=== PATIENT | male | born 1975 | race Caucasian/White ===

== ENCOUNTER → 2025-03-25 | Outpatient (CLI) | payer OTHER | LOC: M RAD 17:02 | PROVIDERS: ATTEND Physician Assistant | DX: M75.51 Bursitis of right shoulder (principal) ==

== ENCOUNTER 2025-07-27 07:51 | Day surgery (SDC) | payer OTHER ==
[~2025-07-27] VITALS: Ht 172.7 cm; Wt 87.4 kg
[2025-07-27] MEDS: LR 1,000 ML IV SCH (08:15)
[2025-07-27] MEDS ORDERED: LIDOCAINE 2% 100 MG/5 ML SDV (FOR ANES.) As Ordered ONE (08:28)
[2025-07-27] MEDS ORDERED: dexmedeTOMIDine (4 MCG/ML) 200 MCG/50 ML BTL As Ordered ONE (08:28)
[2025-07-27] MEDS ORDERED: SUGAMMADEX SODIUM 500 MG/5 ML VIAL As Ordered ONE (08:28)
[2025-07-27] MEDS ORDERED: ONDANSETRON 4MG/2ML VIAL As Ordered ONE (08:28)
[2025-07-27] MEDS ORDERED: MIDAZOLAM INJ 2 MG/2 ML VIAL As Ordered ONE (08:28)
[2025-07-27] MEDS ORDERED: dexAMETHasone 4 MG/ML 1 ML VIAL As Ordered ONE (08:28)
[2025-07-27] MEDS ORDERED: ROCURONIUM BROMIDE 50MG/5ML VIAL As Ordered ONE (08:29)
[2025-07-27] MEDS ORDERED: ACETAMINOPHEN 1000MG/100ML IV BAG As Ordered ONE (08:29)
[2025-07-27] MEDS: MIDAZOLAM INJ 2 MG/2 ML VIAL IV PRN (10:02)
[2025-07-27] MEDS: dexAMETHasone 10 MG/1 ML VIAL PRES.FREE PN ONE (10:06)
[2025-07-27] MEDS: LIDOCAINE 1% SDV 5 ML VIAL PN ONE (10:06)
[2025-07-27] MEDS: ROPIvacaine 0.5% 30ML VIAL PN ONE (10:06)
[2025-07-27] MEDS: LIDOCAINE W/EPINEPHrine 1% 20 ML VIAL As Ordered ONE (11:51)
[2025-07-27] MEDS: EPINEPHrine 1 MG/ML INJ 30 ML MD-VIAL As Ordered ONE (12:05)
[2025-07-27] MEDS ORDERED: HYDROMORPHONE HCL 0.5 MG/0.5 ML SYRINGE IV PRN (13:50)
[2025-07-27] MEDS ORDERED: MORPHINE 2 MG/ML 1 ML VIAL IV PRN (13:50)
[2025-07-27 15:44] VITALS: BP 129/63; TEMP 97.1; O2SAT 97
== END 2025-07-27 15:47 | disposition home or self-care (01) ==
LOC: M SDC 07:51
PROVIDERS: ATTEND Neuromusculoskeletal Medicine, Sports Medicine
DX: M75.111 Incomplete rotator cuff tear or rupture of right shoulder, not specified as traumatic (principal); M75.41 Impingement syndrome of right shoulder; M25.711 Osteophyte, right shoulder; M19.011 Primary osteoarthritis, right shoulder; Z88.8 Allergy status to other drugs, medicaments and biological substances; Z90.89 Acquired absence of other organs
CPT/HCPCS: 29826; 29827; C1713; J0131; J0165; J0688; J1100; J2250; J2405; J2795; J3010